=== PATIENT | female | born 1990 | race Caucasian/White ===

== ENCOUNTER 2018-07-18 17:34 | Emergency (ER) | payer MEDICARE, MEDICAID ==
[~2018-07-18] VITALS: Ht 167.6 cm; Wt 68.0 kg
[2018-07-18 17:47] VITALS: BP 120/74
== END 2018-07-18 19:51 | disposition home or self-care (01) ==
LOC: ER 17:35
DX: M25.552 Pain in left hip (principal); M79.662 Pain in left lower leg; F25.9 Schizoaffective disorder, unspecified; F31.9 Bipolar disorder, unspecified; V89.2XXA Person injured in unspecified motor-vehicle accident, traffic, initial encounter; Y93.89 Activity, other specified; Y92.89 Other specified places as the place of occurrence of the external cause; Y99.8 Other external cause status
CPT/HCPCS: 99283